=== PATIENT | male | born 1995 | race African-American/Black ===

== ENCOUNTER 2016-10-14 19:12 | Emergency (ER) | payer OTHER ==
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
== END 2016-10-14 23:26 | disposition home or self-care (01) ==
LOC: CED 19:12 → CFTX 19:12
DX: S09.90XA Unspecified injury of head, initial encounter (principal); S00.83XA Contusion of other part of head, initial encounter; V48.5XXA Car driver injured in noncollision transport accident in traffic accident, initial encounter
CPT/HCPCS: 70450; 99283